=== PATIENT | male | born 1970 | race Caucasian/White ===

== ENCOUNTER 2018-09-17 14:45 | Emergency (ER) | payer SELFPAY ==
[2018-09-17] MEDS ORDERED: Ketorolac Tromethamine 30 MG/ML VIAL ONE (15:25)
[2018-09-17] MEDS ORDERED: Ondansetron PF 4 MG/2 ML Vial ONE (15:25)
[2018-09-17 15:30] LABS: Bilirubin Negative (Negative); Blood, Urine Large (Negative); Clarity CLOUDY (Clear); Glucose, Urine (Dipstick) Negative (Negative); Leukocyte Trace (Negative); Nitrite Negative (Negative); Protein, Urine (Dipstick) 30 mg/dL (Neg-Trace); Specific Gravity, Urine 1.016 (1.002-1.036); Urobilinogen 0.2 mg/dL (0.2-1.0); pH, Urine 7.5 (5.0-9.0)
[2018-09-17 15:32] LABS: Bacteria/HPF None Seen HPF (None Seen); Hyaline Casts/LPF 0-3 HYALINE CAST LPF (0-3 Hyaline); Pathc Cast-AUWi Flag 0.29 (0-2.49); RBC/HPF GREATER THAN 50-TNTC HPF (0-3); Squamous Epithelial 0-3 HPF (0-3)
[2018-09-17 15:34] LABS: Sperm-AUWi Flag 194.9 (0-9.9)
[2018-09-17 15:40] LABS: #Lymphocytes 1.1 thou/uL (1.20-3.40); #Monocytes 0.7 thou/uL (0.11-0.59); #Neutrophils 11.1 thou/uL (1.40-6.50); %Basophils 0.1 % (0.0-1.0); %Eosinophils 0.3 % (0.0-10.0); %Lymphocytes 8.6 % (21.0-51.0); %Monocytes 5.4 % (0.0-10.0); %Neutrophils 85.5 % (42.0-75.0); Hemoglobin 14.9 g/dL (14.0-18.0); Mean Corpuscular HGB CONC 34.9 g/dL (32.0-36.0); Mean Corpuscular Hemoglobin 30.5 pg (27.0-31.0); Mean Corpuscular Volume 87.5 fL (78.0-98.0); Mean Platelet Volume 7.1 fL (7.4-10.4); Platelet Count 306 thou/uL (130-400); RBC Distribution Width 12.1 % (11.5-14.5); Red Blood Cell (RBC) Count 4.87 mill/uL (4.70-6.10)
[2018-09-17 15:47] LABS: Sperm/HPF 1+ HPF (None Seen)
[2018-09-17 16:11] LABS: ALT (SGPT) 33 U/L (8-55); AST (SGOT) 27 U/L (5-34); Albumin 4.3 g/dL (3.5-5.0); Alkaline Phosphatase 86 U/L (40-150); Anion Gap 11 mmol/L (10-20); BUN (Urea Nitrogen) 12 mg/dL (8.9-20.6); Calc. Creatinine Clearance 0 mL/min (70-130); Carbon Dioxide 28 mmol/L (22-29); Chloride 102 mmol/L (98-107); Estimated GFR-MDRD 63; Glucose 96 mg/dL (70-105); Lipase 43 U/L (8-78); Potassium 3.3 mmol/L (3.5-5.1); Protein, Total 7.3 g/dL (6.0-8.3); Sodium 138 mmol/L (136-145)
--- NOTE | 2018-09-17 16:55 | CT ---
NONCONTRAST CT ABDOMEN AND PELVIS: Date: 09/17/18 HISTORY: Intermittent left flank pain radiating to lower abdomen with onset of symptoms last night. COMPARISON: 03/24/07. FINDINGS: There is mild atelectasis at the left lung base. Lung bases are otherwise clear. There is mild left hydronephrosis with a punctate calculus in the proximal left ureter near the left UPJ which measures approximately 3.0 mm and is best imaged on the coronal reformatted images. No brook tional ureteral calculus is seen on the left. Ureter distal to this region is normal in caliber. No right renal or ureteral calculus is visualized. The liver, spleen, pancreas, bilateral adrenal glands, and right kidney demonstrate a grossly normal nonenhanced CT appearance. Urinary bladder is decompressed. Valenzuela of urinary bladder appear thickened , likely related to decompressed nature of the urinary bladder. There is fat contained within each inguinal ring. The appendix is visualized and normal in caliber and filled with gas. Osseous structures appear intact. IMPRESSION: Partially obstructing left UPJ calculus measuring 3.0 mm. POS: MICHAEL
== END 2018-09-17 16:47 | disposition home or self-care (01) ==
LOC: ERS 14:45
DX: N13.2 Hydronephrosis with renal and ureteral calculous obstruction (principal); Z79.899 Other long term (current) drug therapy
CPT/HCPCS: 36415; 74176; 80053; 81003; 81015; 83690; 85025; 87086; 96361; 96374; 96375; J1885; J2405

== ENCOUNTER 2020-06-15 14:01 | Emergency (ER) | payer SELFPAY ==
[2020-06-15] MEDS ORDERED: Acetaminophen 500 MG TAB ONE (14:32)
[2020-06-15] MEDS ORDERED: Cyclobenzaprine 10 MG TAB ONE (14:32)
[2020-06-15] MEDS ORDERED: Ketorolac Tromethamine 30 MG/ML VIAL ONE ×2 (14:44→14:47)
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
== END 2020-06-15 15:54 | disposition home or self-care (01) ==
LOC: ERS 14:01
DX: S76.011A Strain of muscle, fascia and tendon of right hip, initial encounter (principal); F17.210 Nicotine dependence, cigarettes, uncomplicated; N40.0 Benign prostatic hyperplasia without lower urinary tract symptoms; Z79.899 Other long term (current) drug therapy; V49.40XA Driver injured in collision with unspecified motor vehicles in traffic accident, initial encounter
CPT/HCPCS: 96372; J1885

== ENCOUNTER 2020-09-28 10:06 | Outpatient (CLI) | payer OTHER ==
--- NOTE | 2020-09-28 11:07 | MRI ---
MR CERVICAL SPINE WITHOUT CONTRAST INDICATION: 50-year-old male with right-sided neck pain extending into right arm TECHNIQUE: Multiplanar multisequence MR images were obtained of the cervical spine without contrast. COMPARISON: CT cervical spine without contrast dated March 17, 2007 FINDINGS: Motion artifact slightly limits image detail. Posterior fossa: Within normal limits. Bone marrow signal intensity: There is incomplete segmentation at C2-C3. No acute fracture is evident . There is a 3.6 mm small T2 hyperintense, intermediate to high T1 signal intensity lesion within the left aspect of the C5 vertebral body. No CT correlate is seen on the comparison CT of the cervica l spine. Spinal alignment: There is some straightening of the normal cervical lordosis. Craniocervical junction: Normal appearing. Prevertebral and perivertebral soft tissues: Visualized soft tissues appear within normal limits. Vertebral levels: C2-C3: No appreciable central canal or neuroforaminal narrowing. C3-4: There is a small central protrusion. No appreciable central canal or neural foraminal narrowing is evident. C4-5: There is a broad-based bulge with mild uncovertebral hypertrophy and facet joint degenerative change present at this level. There is mild ventral effacement of the subarachnoid space without cord contact. No appreciable neural foraminal narrowing is evident. C5-C6: There is a broad-based bulge causing mild ventral effacement of the subarachnoid space. There is uncal vertebral hypertrophy and facet joint degenerative change greater on the right inducing mild right neural foraminal narrowing. C6-C7: There is a mild broad-based bulge. There is mild facet joint degenerative change. There is no appreciable central canal or neural foraminal narrowing. C7-T1: No appreciable central canal or neuroforaminal narrowing. IMPRESSION: 1. Mild cervical spondylosis with mild right neural foraminal narrowing seen at C5-6. 2. Mild central canal narrowing at C4-5 and C5-6. 3. Small indeterminate T2 hyperintense, intermediate signal intensity oval lesion within the left asp ect of the C5 vertebral body may reflect a small subchondral cyst near the left uncovertebral joint. 4. Incomplete segmentation of C2-C3.
== END 2020-09-28 10:07 | disposition home or self-care (01) ==
LOC: TBSIIMAG 10:06
PROVIDERS: ATTEND Neurological Surgery
DX: M47.22 Other spondylosis with radiculopathy, cervical region (principal); M48.02 Spinal stenosis, cervical region
CPT/HCPCS: 72141

== ENCOUNTER 2020-10-21 09:01 | Outpatient (CLI) | payer OTHER ==
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
== END 2020-10-21 09:02 | disposition home or self-care (01) ==
LOC: BICMRI 09:01
PROVIDERS: ATTEND Neurological Surgery
DX: M47.26 Other spondylosis with radiculopathy, lumbar region (principal); M54.5 Low back pain; M47.817 Spondylosis without myelopathy or radiculopathy, lumbosacral region
CPT/HCPCS: 72148